=== PATIENT | male | born 1935 | race African-American/Black ===

== ENCOUNTER 2017-01-29 14:59 | Emergency (ER) | payer OTHER ==
[~2017-01-29] VITALS: Ht 175.3 cm; Wt 97.5 kg
[2017-01-29 17:58] VITALS: BP 123/64
== END 2017-01-29 17:40 | disposition home or self-care (01) ==
LOC: ER 14:59
DX: M79.641 Pain in right hand (principal); Z88.5 Allergy status to narcotic agent; Z88.0 Allergy status to penicillin; Z88.1 Allergy status to other antibiotic agents